=== PATIENT | male | born 1990 | race Caucasian/White ===

== ENCOUNTER 2017-01-18 10:03 | Emergency (ER) | payer OTHER ==
[2017-01-18 10:21] VITALS: BP 122/78
--- NOTE | 2017-01-18 10:33 | EDM.PDOC ---
<Nayla Vyas - Last Filed: 01/18/17 10:40> ED HPI GENERAL MEDICAL PROBLEM - General Chief Complaint: Gastrointestinal Problem Stated Complaint: [id number] FLU AT TRAINING ACTIVE DUTY ORDER Time Seen by Provider: 01/18/17 10:20 Source of Information: Reports: Patient History Limitations: Reports: No limitations - History of Present Illness INITIAL COMMENTS - FREE TEXT/NARRATIVE: Patient presents to the ER with c/o nausea/vomiting, and states a fever since yesterday. He admits to vomiting last night and again this morning. He states the vomit had bright red blood in small amounts. The patient states his stomach is quite tender this morning and he has episodes of lightheadedness and "hot flashes". He states his mother was ill before he left. Onset: gradual Duration: Getting worse Associated Symptoms: Reports: cough, fever/chills, nausea/vomiting - Related Data Allergies Allergy/AdvReac Type Severity Reaction Status Date / Time No Known Allergies Allergy Verified 01/18/17 10:21 Home Meds: Home Meds . [No Known Home Meds] 01/18/17 [History] Social & Family History - Tobacco Use Smoking Status *Q: Never Smoker Second Hand Smoke Exposure: No - Caffeine Use Caffeine Use: Reports: Soda - Alcohol Use Date of Last Drink: 01/17/17 Time of Last Drink: 20:30 - Recreational Drug Use Recreational Drug Use: No ED ROS GENERAL - Review of Systems Review Of Systems: ROS reveals no pertinent complaints other than HPI. ED EXAM, GENERAL - Physical Exam Exam: See Below Exam Limited By: No limitations General Appearance: alert, WD/WN, no apparent distress Eye Exam: bilateral eye: normal inspection Ears: normal external exam Nose: normal inspection, normal mucosa, no blood Throat/Mouth: Normal inspection Head: atraumatic, normocephalic Neck: normal inspection Respiratory/Chest: no respiratory distress Cardiovascular: normal peripheral pulses, regular rate, rhythm, no edema GI/Abdominal: normal bowel sounds, soft, tender (Male) Exam: Deferred Rectal (Males) Exam: Deferred Back Exam: full range of motion Extremities: normal inspection, non-tender Neurological: alert, oriented, normal cognition, no motor/sensory deficits Psychiatric: normal affect, normal mood Skin Exam: Warm, Dry, Intact, Normal color, No rash Lymphatic: no adenopathy Course - Vital Signs Last Recorded V/S: Last Vital Signs Temp 36.9 C 01/18/17 10:15 Pulse 95 01/18/17 10:15 Resp 16 01/18/17 10:15 BP 122/78 01/18/17 10:15 Pulse Ox 100 01/18/17 10:15 Departure - Departure Disposition: Home, Self-Care 01 Condition: good, fair Clinical Impression: Strep pharyngitis Instructions: Strep Throat, [id number] Forms: ED Department Discharge Additional Instructions: Amoxicillin 500m po TID for 10 days. Zofran 4m orally every 6 hours as needed for nausea and vomiting. Drink plenty of fluids. Follow up in the clinic or with primary care provider next week. <Tavo Menchaca - Last Filed: 01/18/17 10:47> Course - Orders/Labs/Meds Labs: Rapid Strep: Positive Influenza A/B: Negative - Re-Assessments/Exams Free Text/Narrative Re-Assessment/Exam: 01/18/17 10:46 FOR THIS ENCOUNTER THE PATIENT WAS SEEN IN CONJUNCTION WITH [facility] ST[facility]ENT NAYLA VYAS. ALL PATIENT CARE AND/OR PROCEDURE(S), DIAGNOSTIC ORDERS, MEDICATION(S) AND TREATMENT ORDERS, DISPOSITION ORDERS/PLANNING, AND DISCHARGE/FOLLOW UP INSTRUCTIONS WERE UNDER MY DIRECT SUPERVISION. [email or web address] Departure - Departure Time of Disposition: 10:47
== END 2017-01-18 11:48 | disposition home or self-care (01) ==
LOC: DL.ED 10:03
DX: J02.0 Streptococcal pharyngitis (principal)
CPT/HCPCS: 87430; 87804; 99284